=== PATIENT | male | born 1975 | race Hispanic/Latino ===

== ENCOUNTER 2016-11-05 16:45 | Emergency (ER) | payer MEDICARE | END 2016-11-05 17:50 | disposition left against medical advice (07) | LOC: ED 16:45 | DX: K08.89 Other specified disorders of teeth and supporting structures (principal); Z53.21 Procedure and treatment not carried out due to patient leaving prior to being seen by health care provider ==

== ENCOUNTER 2016-11-06 12:27 | Emergency (ER) | payer MEDICARE ==
[2016-11-06 12:37] VITALS: BP 133/85
--- NOTE | 2016-11-06 17:00 | Emergency Department Report ---
HPI - General Chief Complaint: Dental/Oral Time Seen by Provider: 11/06/16 16:32 - HPI HPI: 41-year-old male presents today with lower toothache 2 days. Patient has history of dental problems and states that he has all his teeth taken out except this one. Patient was taking tramadol at home with relief, but ran out. Patient is also currently taking Augmentin for his sinus infection. Denies drainage or bleeding. Denies fever, chills, nausea, vomiting, chest pain, shortness of breath, abdominal pain. ED Past Medical Hx - Past Medical History Hx Hypertension: Yes Hx Diabetes: Yes Additional medical history: GI BLEEDER, high cholesterol BACK PAIN - Surgical History Additional Surgical History: Left hip replacement and tonsilectomy - Social History Smoking Status: Current Every Day Smoker Substance Use Type: None - Medications Home Medications: Home Medications Medication Instructions Recorded Confirmed Last Taken Type Fenofibrate [Fenoglide] 134 mg PO QDAY 06/19/13 11/08/13 06/19/13 09:35 History Hydrocodone Bit/Acetaminophen 1 each PO Q6H PRN #16 tablet 06/19/13 11/08/13 Unknown Rx [Vicodin 5/500] Lisinopril [Zestril] 40 mg PO QDAY 06/19/13 11/08/13 06/19/13 09:34 History Simvastatin [Zocor] 80 mg PO QDAY 06/19/13 11/08/13 Unknown History metFORMIN [Glucophage] 1,000 mg PO BID 06/19/13 11/08/13 Unknown History Penicillin Vk [Veetids TAB] 500 mg PO QID 10 Days 09/27/13 11/08/13 Unknown Rx Amoxicillin [Amoxicillin TAB] 875 mg PO BID #20 tablet 11/08/13 Unknown Rx Penicillin Vk [Veetids TAB] 2 tab PO BID #40 tablet 05/28/14 Unknown Rx traMADol [Ultram] 50 mg PO Q4HR PRN #20 tablet 05/28/14 Unknown Rx HYDROcodone/APAP 7.5-325 [Rudolph 1 each PO Q6HR PRN #16 tablet 06/13/14 Unknown Rx 7.5-325 mg TAB] traMADol [Ultram 50 MG tab] 50 mg PO Q6HR PRN #20 tablet 12/11/14 Unknown Rx traMADol [Ultram] 50 mg PO Q6HR PRN #15 tablet 02/05/16 Unknown Rx traMADol [Ultram] 50 mg PO Q6HR PRN #16 tablet 02/05/16 Unknown Rx traMADol [Ultram 50 MG tab] 50 mg PO Q6HR PRN #15 tablet 11/06/16 Unknown Rx ED Review of Systems ROS: Stated complaint: SEVERE ABSCESS TOOTHACHE Other details as noted in HPI Constitutional: denies: chills, fever, malaise Eyes: denies: eye pain ENT: dental pain. denies: ear pain, throat pain, congestion Respiratory: denies: cough, shortness of breath, wheezing Cardiovascular: denies: chest pain, palpitations Endocrine: no symptoms reported Gastrointestinal: denies: abdominal pain, nausea, vomiting Neurological: denies: headache, weakness Physical Exam - Physical Exam Vital Signs: Vital Signs 11/06/16 12:34 Temperature 97.6 F Pulse Rate 97 H Respiratory 20 Rate Blood Pressure 133/85 O2 Sat by Pulse 97 Oximetry Physical Exam: GENERAL: The patient is well-developed and well-nourished. Patient is in NAD. HEAD: Normocephalic. Atraumatic. EYES: PERRL. NOSE: Normal nasal mucosa with no nasal discharge. THROAT: No erythema, swelling or exudates. DENTAL: Tenderness to palpation of tooth #23. Positive for tooth decay. Poor dental hygiene. NECK: Supple, nontender, without lymphadenopathy. CHEST/LUNGS: Clear to auscultation throughout. HEART/CARDIOVASCULAR: Regular rate and rhythm. ABDOMEN: Abdomen is soft, nontender. No guarding or rebound tenderness. EXTREMITIES: Peripheral pulses intact. Capillary refill less than 2 seconds. NEURO: Alert and oriented x 3. Normal gait. ED Course Vital Signs 11/06/16 12:34 Temperature 97.6 F Pulse Rate 97 H Respiratory 20 Rate Blood Pressure 133/85 O2 Sat by Pulse 97 Oximetry ED Medical Decision Making - Lab Data Vital Signs 11/06/16 12:34 Temperature 97.6 F Pulse Rate 97 H Respiratory 20 Rate Blood Pressure 133/85 O2 Sat by Pulse 97 Oximetry - Medical Decision Making 40-year-old male presents today with toothache 2 days. Patient is recommended to continue his Augmentin. Patient is in no acute distress at this time. He will be discharged home and is encouraged to follow up with a dentist. He will be sent home on tramadol and is encouraged to return to the emergency room for any worsening symptoms. Critical care attestation.: If time is entered above; I have spent that time in minutes in the direct care of this critically ill patient, excluding procedure time. ED Disposition Clinical Impression: Toothache Disposition: DISCHARGED TO HOME OR SELFCARE Is pt being admited?: No Does the pt Need Aspirin: No Condition: Stable Instructions: Toothache (ED), Dental Caries (ED) Additional Instructions: Follow with primary care provider. Return to the emergency department if symptoms worsen. Prescriptions: traMADol [Ultram 50 MG tab] 50 mg PO Q6HR PRN #15 tablet PRN Reason: Pain Referrals: PRIMARY CARE,MD [Primary Care Provider] - 3-5 Days [facility] [Outside] - 3-5 Days [facility] [Outside] - 3-5 Days Forms: Work/School Release Form(ED) Time of Disposition: 17:06
== END 2016-11-06 17:28 | disposition home or self-care (01) ==
LOC: ED 12:27
DX: K08.89 Other specified disorders of teeth and supporting structures (principal); I10 Essential (primary) hypertension; E11.9 Type 2 diabetes mellitus without complications; E78.00 Pure hypercholesterolemia, unspecified; F17.200 Nicotine dependence, unspecified, uncomplicated; Z90.89 Acquired absence of other organs
CPT/HCPCS: 99282